=== PATIENT | female | born 1960 | race Two or more races ===

== ENCOUNTER 2020-05-04 03:49 | Emergency (ER) | payer MEDICAID ==
[~2020-05-04] VITALS: Ht 170.2 cm; Wt 72.4 kg
[2020-05-04 03:51] VITALS: BP 170/98
[2020-05-04] MEDS ORDERED: IBUPROFEN 600 MG TABLET PO ONE (04:30)
[2020-05-04] MEDS ORDERED: IBUPROFEN 600 MG TABLET ONE (04:31)
[2020-05-04] MEDS ORDERED: CYCLOBENZAPRINE 10 MG TABLET ONE (05:28)
[2020-05-04] MEDS ORDERED: ACETAMINOPHEN 500 MG TABLET ONE (05:28)
[2020-05-04] MEDS ORDERED: CYCLOBENZAPRINE 10 MG TABLET PO ONE (05:30)
[2020-05-04] MEDS ORDERED: ACETAMINOPHEN 500 MG TABLET PO ONE (05:30)
== END 2020-05-04 05:45 | disposition home or self-care (01) ==
LOC: ED 05:38
DX: S20.211A Contusion of right front wall of thorax, initial encounter (principal); I10 Essential (primary) hypertension; X58.XXXA Exposure to other specified factors, initial encounter; Y93.89 Activity, other specified; Y92.89 Other specified places as the place of occurrence of the external cause; Y99.8 Other external cause status
CPT/HCPCS: 71045; 99284